=== PATIENT | female | born 1955 | race African-American/Black ===

== ENCOUNTER 2020-07-18 11:27 | Inpatient (IN) | payer SELFPAY ==
[2020-07-18 11:33] VITALS: BMI 18.6
[2020-07-18] MEDS ORDERED: SODIUM CHLORIDE 1,000 ML IV STA ×2 (12:24→15:54)
[2020-07-18] MEDS ORDERED: ACETAMINOPHEN 1000 MG/100 ML VIAL (NON FORMULARY) IVPB ONE (12:24)
[2020-07-18 12:49] LABS: BASO % 0.3 % (0-2.0); EOS % 0.1 % (0-4.5); HEMATOCRIT 33.3 % (32.4-45.2); LYMPH % 7.8 % (8-40); MCH 28.2 pg (25.7-33.7); MEAN CELL VOLUME 85.4 fl (80-96); MONO % 5.4 % (3.8-10.2); NEUT % 86.4 % (42.8-82.8); PLATELET COUNT 311 K/MM3 (134-434); RDW 14.2 % (11.6-15.6); WHITE BLOOD COUNT 9.5 K/mm3 (4.0-10.0)
[2020-07-18] MEDS ORDERED: ACETAMINOPHEN INJECTION 100 ML IVPB ONE (12:52)
[2020-07-18 13:02] LABS: EPI CELLS >36 /uL (0-25.1); HYALINE CASTS 11 /uL (0-3.1); URINE APPEARANCE CLOUDY; URINE BACTERIA 198 /uL (0-1359); URINE BILIRUBIN NEGATIVE (NEGATIVE); URINE COLOR YELLOW; URINE GLUCOSE (UA) NEGATIVE (NEGATIVE); URINE KETONE TRACE (NEGATIVE); URINE LEUK ESTERASE TRACE (NEGATIVE); URINE NITRITE NEGATIVE (NEGATIVE); URINE PROTEIN 1+ (NEGATIVE); URINE RBC 15 /uL (0-23.9); URINE WBC 78 /uL (0-25.8)
[2020-07-18 13:14] LABS: CHLORIDE 102 mmol/L (98-107); POTASSIUM 4.7 mmol/L (3.5-5.1); SODIUM 136 mmol/L (136-145)
[2020-07-18 13:15] LABS: CALCIUM 8.4 mg/dL (8.5-10.1)
[2020-07-18 13:17] LABS: ALBUMIN 2.9 g/dl (3.4-5.0); ANION GAP 12 MMOL/L (8-16); BLOOD UREA NITROGEN 28.3 mg/dL (7-18); CO2 22 mmol/L (21-32); GLUCOSE,RANDOM 132 mg/dL (74-106)
[2020-07-18 13:19] LABS: CREATININE 2.1 mg/dL (0.55-1.3); SGOT/AST 191 U/L (15-37); SGPT/ALT 65 U/L (13-61)
[2020-07-18 13:21] LABS: BILIRUBIN,TOTAL 0.7 mg/dL (0.2-1)
[2020-07-18 13:22] LABS: ALK PHOS 76 U/L (45-117)
[2020-07-18 13:28] LABS: INR 1.47 (0.83-1.09); PROTHROMBIN TIME (PATIENT) 17.9 SEC (9.7-13.0)
[2020-07-18] MEDS ORDERED: PIPERACILLIN/TAZOB 3.375 GM 3.375 GM in DEXTROSE 5%-WATER - 50 ML IVPB SCH (18:30)
[2020-07-18] MEDS ORDERED: VANCOMYCIN 1 GM in D5W (PRE-DOCKED) 1,000 MG/250 ML IVPB ONE (18:30)
[2020-07-18] MEDS ORDERED: SODIUM CHLORIDE 1,000 ML IV SCH (19:15)
[2020-07-18] MEDS ORDERED: PIPERACILLIN/TAZOB 3.375 GM 3.375 GM/50 ML BAG IVPB ONE (19:32)
[2020-07-18] MEDS ORDERED: VANCOMYCIN 1 GRAM (PRE-DOCKED) 1,000 MG/250 ML BAG IVPB ONE (19:32)
[2020-07-18] MEDS: PIPERACILLIN/TAZOB 3.375 GM 3.375 GM in DEXTROSE 5%-WATER - 50 ML IVPB SCH (20:00)
[2020-07-18] MEDS: SODIUM CHLORIDE 1,000 ML IV SCH (21:29)
[2020-07-18] MEDS ORDERED: HEPARIN NA (PORCINE) 5,000 UNITS/ML 1ML VIAL ONE (23:20)
[2020-07-18] MEDS: HEPARIN NA (PORCINE) 5,000 UNITS/ML 1ML VIAL SQ SCH (23:29)
[2020-07-19] MEDS ORDERED: PIPERACILLIN/TAZOB 3.375 GM 3.375 GM/50 ML BAG IVPB ONE ×2 (02:26→09:20)
[2020-07-19] MEDS: PIPERACILLIN/TAZOB 3.375 GM 3.375 GM in DEXTROSE 5%-WATER - 50 ML IVPB SCH ×2 (02:43→09:27)
[2020-07-19 04:04] LABS: SYPHILIS W/ RPR CONF NON-REACTIVE (NONREACTIVE)
[2020-07-19 04:33] LABS: HIV INTERPRETATION NEGATIVE (NEGATIVE)
[2020-07-19 07:48] LABS: BASO % 0.4 % (0-2.0); EOS % 0.8 % (0-4.5); HEMATOCRIT 29.5 % (32.4-45.2); HEMOGLOBIN 9.6 GM/dL (10.7-15.3); MCH 27.8 pg (25.7-33.7); MCHC 32.6 g/dl (32.0-36.0); MEAN CELL VOLUME 85.4 fl (80-96); MEAN PLT VOLUME 7.4 fl (7.5-11.1); MONO % 5.9 % (3.8-10.2); NEUT % 81.9 % (42.8-82.8); PLATELET COUNT 295 K/MM3 (134-434); RBC 3.45 M/mm3 (3.60-5.2); RDW 13.9 % (11.6-15.6); WHITE BLOOD COUNT 7.6 K/mm3 (4.0-10.0)
[2020-07-19 07:53] LABS: INR 1.48 (0.83-1.09)
[2020-07-19 08:06] LABS: ALBUMIN 2.5 g/dl (3.4-5.0); CALCIUM 7.8 mg/dL (8.5-10.1)
[2020-07-19 08:07] LABS: BLOOD UREA NITROGEN 25.3 mg/dL (7-18); MAGNESIUM 1.8 mg/dL (1.8-2.4)
[2020-07-19 08:10] LABS: CREATININE 1.4 mg/dL (0.55-1.3); PHOSPHOROUS 3.5 mg/dL (2.5-4.9)
[2020-07-19 08:15] LABS: HDL CHOLESTEROL 27 mg/dL (40-60)
[2020-07-19 08:17] LABS: CHOLESTEROL 137 mg/dL (50-200)
[2020-07-19 08:18] LABS: TRIGLYCERIDES 113 mg/dL (0-150)
[2020-07-19 08:19] LABS: LDL CHOLESTEROL (ONLY SJRH) 97 mg/dL (5-100)
[2020-07-19 08:22] LABS: POTASSIUM 4.7 mmol/L (3.5-5.1)
[2020-07-19 08:34] LABS: LDH 2150 U/L (84-246)
[2020-07-19] MEDS ORDERED: HEPARIN NA (PORCINE) 5,000 UNITS/ML 1ML VIAL ONE (09:19)
[2020-07-19] MEDS: HEPARIN NA (PORCINE) 5,000 UNITS/ML 1ML VIAL SQ SCH (09:27)
[2020-07-19] MEDS ORDERED: PNEUMOC 13-VAL CONJ-DIP CRM/PF 0.5 ML DISP.SYRIN IM ONE (16:00)
[2020-07-19] MEDS ORDERED: ACETAMINOPHEN 325 MG TABLET (FP) PO PRN (17:25)
[2020-07-19] MEDS: SODIUM CHLORIDE 1,000 ML IV SCH (17:48)
[2020-07-20 09:40] LABS: BASO % 0.3 % (0-2.0); EOS % 0.7 % (0-4.5); HEMATOCRIT 27.6 % (32.4-45.2); HEMOGLOBIN 9.1 GM/dL (10.7-15.3); LYMPH % 11.9 % (8-40); MCH 28.1 pg (25.7-33.7); MCHC 32.9 g/dl (32.0-36.0); MEAN CELL VOLUME 85.5 fl (80-96); MEAN PLT VOLUME 7.1 fl (7.5-11.1); MONO % 5.9 % (3.8-10.2); NEUT % 81.2 % (42.8-82.8); PLATELET COUNT 335 K/MM3 (134-434); RBC 3.22 M/mm3 (3.60-5.2); RDW 14.3 % (11.6-15.6); WHITE BLOOD COUNT 7.3 K/mm3 (4.0-10.0)
[2020-07-20 09:54] LABS: POTASSIUM 4.6 mmol/L (3.5-5.1)
[2020-07-20 10:00] LABS: CALCIUM 8.1 mg/dL (8.5-10.1)
[2020-07-20 10:01] LABS: ALBUMIN 2.5 g/dl (3.4-5.0); BLOOD UREA NITROGEN 25.9 mg/dL (7-18); MAGNESIUM 2.1 mg/dL (1.8-2.4)
[2020-07-20 10:04] LABS: CREATININE 1.5 mg/dL (0.55-1.3)
[2020-07-20 10:06] LABS: BILIRUBIN,TOTAL 0.6 mg/dL (0.2-1); TOT PROT 6.9 g/dl (6.4-8.2)
[2020-07-20 14:22] LABS: BF WBC & OTHER NUCLEATED CELLS 3166 /mm3
[2020-07-20 16:49] LABS: BODY FLUID MACROPHAGES 58 %; BODY FLUID MONOCYTE 36 %
[2020-07-20] MEDS: HEPARIN NA (PORCINE) 5,000 UNITS/ML 1ML VIAL SQ SCH (21:49)
[2020-07-21 09:32] LABS: POTASSIUM 4.6 mmol/L (3.5-5.1)
[2020-07-21 09:35] LABS: BLOOD UREA NITROGEN 23.1 mg/dL (7-18); CALCIUM 7.9 mg/dL (8.5-10.1)
[2020-07-21 09:38] LABS: CREATININE 1.3 mg/dL (0.55-1.3)
[2020-07-21] MEDS: HEPARIN NA (PORCINE) 5,000 UNITS/ML 1ML VIAL SQ SCH (10:17)
[2020-07-21 11:37] VITALS: BP 118/72; PULSE 88; TEMP 97.9
[2020-07-22 06:36] LABS: BODY FLUID ALBUMIN 2.8 g/dL (Not Estab.)
== END 2020-07-21 17:08 | disposition home or self-care (01) | DRG 518 ==
LOC: JER 11:27 → JERBED 17:58 → J6S 07-19 11:49
PROVIDERS: ATTEND Internal Medicine
PROC: 0W9G3ZX Drainage of Peritoneal Cavity, Percutaneous Approach, Diagnostic (ICD-10-PCS; principal; 2020-07-20)
DX: C56.9 Malignant neoplasm of unspecified ovary (principal); N17.9 Acute kidney failure, unspecified; R64 Cachexia; R18.8 Other ascites; E87.2 Acidosis; Z68.1 Body mass index [BMI] 19.9 or less, adult; E87.1 Hypo-osmolality and hyponatremia; R18.0 Malignant ascites
CPT/HCPCS: 36415; 71046-TC-FY; 74019-TC-FY; 74176-TC; 76705-TC; 76856-TC; 76942-TC; 80048; 80053; 80061; 80074; 80307; 81003; 82042; 82150; 82465; 82550; 82945; 83036; 83605; 83615; 83690; 83721; 83735; 83986; 84100; 84157; 84443; 84484; 85025; 85610; 86304; 86780; 86850; 86900; 86901; 87040; 87070; 87075; 87086; 87102; 87116; 87205; 87206; 87210; 87389; 87529; 88108; 88305-TC; 90670; 93005; 93010; 99285-25; C9803; J0131; J1644; U0003